=== PATIENT | female | born 1965 | race Caucasian/White ===

== ENCOUNTER 2017-02-20 17:19 | Emergency (ER) | payer SELFPAY ==
[2017-02-20 17:31] VITALS: BMI 24.7
[2017-02-20 17:33] VITALS: BP 114/69; PULSE 61; RESP 17; TEMP 97.6; O2SAT 99
[2017-02-20] MEDS ORDERED: Naproxen 550 mg Tab PO STA (17:57)
--- NOTE | 2017-02-20 18:01 | C.PDOC ---
History Of Present Illness 52 yr old female presents to the ER s/p slipping and falling backwards at work today. Patient states she hit the back of her head and now had a headache and neck pain. Patient denies LOC, vision changes, nausea, vomiting, back pain, weakness or numbness. 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 Eyes: Negative for: Vision Change Gastrointestinal: Negative for: Nausea, Vomiting Musculoskeletal: Positive for: Neck Pain. Negative for: Back Pain Neurological: Positive for: Headache. Negative for: Weakness, Numbness Physical Exam - Physical Exam Appears: Well, Non-toxic, No Acute Distress Skin: Warm, Dry Head: Normacephalic, Tenderness (Tenderness and swelling to the occipital area.) Eye(s): bilateral: Normal Inspection, EOMI Neck: Normal ROM, Paracervical Tenderness (Diffuse), Supple Chest: Symmetrical, No Tenderness Cardiovascular: Rhythm Regular, No Murmur Respiratory: Normal Breath Sounds, No Rales, No Rhonchi, No Stridor, No Wheezing Extremity: Normal ROM, No Swelling Neurological/Psych: Oriented x3, Normal Speech, Normal Motor ED Course And Treatment O2 Sat by Pulse Oximetry: 99 Medical Decision Making Medical Decision Making: PLAN: * CT - Cervical Spine, Head * Naproxen PO Disposition - Disposition Disposition: HOME/ ROUTINE Disposition Time: 19:00 Condition: GOOD Instructions: Concussion (ED), Head Injury (ED) - Clinical Impression Clinical Impression: Head trauma - Scribe Statement The provider has reviewed the documentation as recorded by the Erenibe Bernarda Rodriguez Provider Attestation: All medical record entries made by the Scribkristin were at my direction and personally dictated by me. I have reviewed the chart and agree that the record accurately reflects my personal performance of the history, physical exam, medical decision making, and the department course for this patient. I have also personally directed, reviewed, and agree with the discharge instructions and disposition. Physician Patient Turnover Patient Signed Over To: Azar Reyes Handoff Comments: Pending CT's
[2017-02-20] MEDS ORDERED: Naproxen 550 mg Tab PO ONE (18:08)
--- NOTE | 2017-02-20 18:53 | CT ---
PROCEDURE: CT HEAD WITHOUT CONTRAST. HISTORY: Fall COMPARISON: None available. TECHNIQUE: Axial computed tomography images were obtained through the head/brain without intravenous contrast. Radiation dose: Total exam DLP = 798.89 mGy-cm. This CT exam was performed using one or more of the following dose reduction techniques: Automated exposure control, adjustment of the mA and/or kV according to patient size, and/or use of iterative reconstruction technique. FINDINGS: HEMORRHAGE: No intracranial hemorrhage. BRAIN: Avila-white matter differentiation is preserved. There is no mass, mass effect or abnormal extra-axial fluid collection. VENTRICLES: The ventricles are normal in size, shape and configuration. CALVARIUM: There is no calvarial fracture or extracranial soft tissue swelling. PARANASAL SINUSES: Predominantly clear. MASTOID AIR CELLS: Predominantly clear. OTHER FINDINGS: None. IMPRESSION: No acute intracranial abnormality.
--- NOTE | 2017-02-20 18:56 | CT ---
PROCEDURE: CT Cervical Spine without contrast HISTORY: Head injury COMPARISON: None available. TECHNIQUE: Axial computed tomography images were obtained of the cervical spine without the use of intravenous contrast. Coronal and sagittal reformatted images were created and reviewed. Radiation dose: Total exam DLP = 798.89 mGy-cm. This CT exam was performed using one or more of the following dose reduction techniques: Automated exposure control, adjustment of the mA and/or kV according to patient size, and/or use of iterative reconstruction technique. FINDINGS: VERTEBRAE: There is straightening of the cervical spine with loss of normal cervical lordosis. Vertebral alignment is normal. Vertebral height is maintained. There is no acute fracture or traumatic anterior listhesis. The craniocervical junction is normal. The atlantoaxial joint is normal. DISCS/SPINAL CANAL/NEURAL FORAMINA: The disc heights are maintained. PARASPINAL SOFT TISSUES: There is no prevertebral soft tissue thickening. The paraspinous soft tissues are normal. OTHER FINDINGS: None. IMPRESSION: No acute fracture or traumatic anterior listhesis. Straightening of the cervical spine may be positional or related to muscle spasm.
== END 2017-02-20 19:15 | disposition home or self-care (01) ==
LOC: C.ER 17:19
DX: S09.90XA Unspecified injury of head, initial encounter (principal); W01.0XXA Fall on same level from slipping, tripping and stumbling without subsequent striking against object, initial encounter; Y93.89 Activity, other specified; Y92.89 Other specified places as the place of occurrence of the external cause; Y99.0 Civilian activity done for income or pay